=== PATIENT | female | born 1955 | race Caucasian/White ===

== ENCOUNTER → 2017-05-23 | Outpatient (CLI) | payer OTHER ==
[~2017-05-23] MED LIST: ATENOLOL50 M1 PO; PRAVASTATIN SOD20 MG PO
--- NOTE | 2017-05-29 11:10 | RADIOLOGY REPORT PS360 ---
DIG MAMM-SCREEN BRIDGETTE W/CAD CAD Screening ORDERING PHYSICIAN : Nestor Tovar MD PATIENT AGE: 61 years GENDER: Female COMPARISON: Previous mammograms: April 2016, 2014, 2013. Also August 2011 INDICATION: Routine screening no new complaints. No hormones. Previous stereotactic biopsy left breast. Family history: Sister with breast cancer TECHNIQUE: Standard CC and MLO images were obtained. R2 CAD reviewed. FINDINGS: No new findings. No dominant mass nor suspicious calcifications either breast. Mild asymmetry again noted. RIGHT BREAST: No areas of concern at the right breast. Fairly low-density breast. LEFT BREAST: Nearly 9 mm mm ovoid focal nodular density at the superior left breast is again seen and stable since 2011 exam. The long-term stability supporting benign character. It can be followed safely. . Metallic marker from previous particularly is biopsy seen just anterior to this area Remainder left breast appears stable and unchanged with a few scattered benign calcifications. IMPRESSION: ...... Stable bilateral mammogram with no new areas of concern . Long-term stable nodular densities superior left breast. Follow-up in one year recommended BI-RADS CATEGORY: 2_Benign RECOMMENDED FOLLOWUP: 12M 12 MONTH FOLLOW-UP (A letter has been sent to the patient regarding results of the study.)
== END ==
LOC: RAD 15:29
DX: Z12.31 Encounter for screening mammogram for malignant neoplasm of breast (principal)
CPT/HCPCS: G0202